=== PATIENT | female | born 1990 | race Asian ===

== ENCOUNTER 2020-07-16 18:40 | Emergency (ER) | payer BC ==
[~2020-07-16] VITALS: Ht 162.6 cm; Wt 54.4 kg
--- NOTE | 2020-07-16 18:52 | NUR ---
[email or web address], medical screening exam in progress
[2020-07-16] MEDS ORDERED: IBUPROFEN 600 MG TABLET PO ONE (19:00)
--- NOTE | 2020-07-16 19:04 | NUR ---
still for x-ray, hands off report given to GERARDO Sanchez
[2020-07-16] MEDS ORDERED: IBUPROFEN 600 MG TABLET ONE (19:06)
--- NOTE | 2020-07-16 19:35 | NUR ---
urine collected and sent to lab, left leg wrapped in galileo bandage and crutches given
[2020-07-16 19:40] LABS: *URINE HCG, QUAL NEGATIVE (NEGATIVE)
[2020-07-16 19:52] VITALS: BP 119/76
[2020-07-16] MEDS ORDERED: ONDANSETRON ODT 4 MG TAB.RAPDIS ONE (19:54)
--- NOTE | 2020-07-16 19:54 | NUR ---
Patient discharged to home in stable condition. Patient instructed on crutches use, instructed to follow up with ortho. Written and verbal after care instructions given. Took all belongings. Patient verbalizes understanding of instructions. Stressed follow up or return to ER for worsening s/s.
[2020-07-16] MEDS ORDERED: ONDANSETRON ODT 4 MG TAB.RAPDIS SL ONE (20:00)
== END 2020-07-16 19:55 | disposition home or self-care (01) ==
LOC: ER 18:43
DX: S93.402A Sprain of unspecified ligament of left ankle, initial encounter (principal); W01.0XXA Fall on same level from slipping, tripping and stumbling without subsequent striking against object, initial encounter; Y93.51 Activity, roller skating (inline) and skateboarding; Y92.89 Other specified places as the place of occurrence of the external cause
CPT/HCPCS: 73610; 84703; A4663; Q0162